=== PATIENT | female | born 1995 | race Two or more races ===

== ENCOUNTER 2019-12-26 18:14 | Emergency (ER) | payer SELFPAY ==
[~2019-12-26] VITALS: Ht 160 cm; Wt 65.8 kg
[2019-12-26 18:32] VITALS: BP 116/70
--- NOTE | 2019-12-26 18:32 | NUR ---
ED Nurse Note: PT walked in to ed for C/O having whitish vaginal discharge more than usual x 1 day.
--- NOTE | 2019-12-26 19:01 | NUR ---
ED Nurse Note: report given to claudia leahy. Endorsed plan of care.
--- NOTE | 2019-12-26 19:02 | Emergency Room Report ---
History of Present Illness General Chief Complaint: Female Urogenital Problems Source: Patient Present Illness HPI Patient is a 24-year-old female presents for increased vaginal discharge for the past few days. Reports having recent intercourse and thinks that she is been having increased discharge for the past few days. Denies any fever or abdominal pain. Denies any dysuria. Denies being . Patient does not want to be checked for this discharge. 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, COVID-19 Screening: Negative COVID-19 COVID-19 Testing Source: [employer]ALL[employer] Patient History Past Medical History: see triage record Last Menstrual Period: 12/19/19 Reviewed Nursing Documentation: PMH: Agreed; PSxH: Agreed Nursing Documentation-PM Past Medical History: No Stated History Review of Systems All Other Systems: negative except mentioned in HPI Physical Exam Vital Signs Date Time Temp Pulse Resp B/P (MAP) Pulse Ox O2 Delivery O2 Flow Rate FiO2 12/26/19 18:29 98.8 80 14 113/68 (83) 99 Room Air General Appearance: well appearing, no apparent distress, alert, GCS 15 Head: normocephalic, atraumatic ENT: hearing grossly normal, normal voice Neck: full range of motion, supple Respiratory: normal inspection, no respiratory distress, speaking full sentences Gastrointestinal: normal inspection Genitourinary: other - Patient refused pelvic exam Musculoskeletal: no calf tenderness Neurologic: alert, motor strength/tone normal, 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 Differential diagnosis include was not limited to vaginitis, urinary tract infection, among others. Patient has a benign exam and does not appear to require any imaging or laboratory testing at this time. Patient declined pelvic exam including pelvic exam from female PA. Urine testing was sent. Patient eloped without notifying staff. Did not appear to have any evidence of acute distress.Patient urine showed some evidence of infection which given the patient's symptoms is likely related to sexual transmitted infection. Patient was given prescription for doxycycline as well as azithromycin. She is advised to follow-up with her doctor for STD testing. She advised to return if worse. Prescriptions were sent to her preferred pharmacy. This medical record is generated with [employer] bale piler software. There may be some bale piler discrepancies related to use of this software Labs Test 12/26/19 18:32 Urine Color Patrizia Urine Appearance Slightly cloudy Urine pH 7 (4.5-8.0) Urine Specific [place] 1.015 (1.005-1.035) Urine Protein Negative (NEGATIVE) Urine Glucose (UA) Negative (NEGATIVE) Urine Ketones 1+ (NEGATIVE) Urine Blood Negative (NEGATIVE) Urine Nitrite Negative (NEGATIVE) Urine Bilirubin Negative (NEGATIVE) Urine Ictotest Negative (NEGATIVE) Urine Urobilinogen 1 MG/DL (0.0-1.0) Urine Leukocyte Esterase 1+ (NEGATIVE) Urine RBC 0-2 /HPF (0 - 2) Urine WBC 10-15 /HPF (0 - 2) Urine Squamous Epithelial Cells Moderate /LPF (NONE/OCC) Urine Bacteria Moderate /HPF (NONE) Urine HCG, Qualitative Negative (NEGATIVE) Last Vital Signs Date Time Temp Pulse Resp B/P (MAP) Pulse Ox O2 Delivery O2 Flow Rate FiO2 12/26/19 18:32 98.5 77 15 116/70 98 Room Air Status: improved Disposition: ELOPED Condition: Stable Scripts Azithromycin (AZITHROMYCIN) 1 Gm Packet 1 GM ORAL DAILY, #1 PACKET Prov: Irwin Alonso MD 12/26/19 Doxycycline Hyclate* (VIBRAMYCIN*) 100 Mg Capsule 100 MG ORAL EVERY 12 HOURS, #14 CAP 0 Refills Prov: Irwin Alonso MD 12/26/19 Irwin Alonso MD Dec 26, 2019 19:02
[2019-12-26 19:05] VITALS: BP 116/70
--- NOTE | 2019-12-26 19:05 | NUR ---
ED Nurse Note: Recieved report from FLOWER Mcfadden to resume care, no pt is in room, pt noted by other staff leaving and pt told MD she was going to just go home.
[2019-12-26 19:17] LABS: APPEARANCE,URINE SLIGHTLY CLOUDY; BILIRUBIN, URINE NEGATIVE (NEGATIVE); COLOR,URINE AMBER; GLUCOSE, URINE (UA) NEGATIVE (NEGATIVE); KETONES,URINE 1+ (NEGATIVE); LEUKOCYTE ESTERASE ,URINE 1+ (NEGATIVE); NITRITE,URINE NEGATIVE (NEGATIVE); PH,URINE 7 (4.5-8.0); PROTEIN,URINE NEGATIVE (NEGATIVE); UROBILINOGEN,URINE 1 MG/DL (0.0-1.0)
[2019-12-26] MEDS ORDERED: AZITHROMYCIN1 GM ORAL (21:01)
[2019-12-26] MEDS ORDERED: VIBRAMYCIN100 MG ORAL (21:01)
== END 2019-12-26 19:05 | disposition left against medical advice (07) ==
LOC: EMR 19:00
DX: N89.8 Other specified noninflammatory disorders of vagina (principal); Z20.2 Contact with and (suspected) exposure to infections with a predominantly sexual mode of transmission
CPT/HCPCS: 81003; 81025; 87086; 99282